=== PATIENT | female | born 1965 | race Caucasian/White ===

== ENCOUNTER 2016-04-18 03:31 | Emergency (ER) | payer MEDICARE, MEDICAID ==
[2016-04-18] MEDS ORDERED: NS 0.9% 1000 ML* 1,000 ML IV ONE (03:54)
[2016-04-18] MEDS ORDERED: methylPREDNISolone 125 MG* 2 ML VIAL IV ONE (03:57)
[2016-04-18] MEDS ORDERED: diPHENhydraMINE IV* 50 MG/ML 1 ml VIAL (BENADRYL) IV ONE (03:57)
[2016-04-18 04:50] LABS: ALT 9 U/L (7-52); AST 15 U/L (13-39); Albumin 4.2 g/dL (3.2-5.2); Alkaline Phosphatase 63 U/L (34-104); Anion Gap 10 mmol/L (2-11); BUN/Creatinine Ratio 13.6 (8-20); Blood Urea Nitrogen 9 mg/dL (6-24); CO2 Carbon Dioxide 23 mmol/L (22-32); Calcium 8.6 mg/dL (8.6-10.3); Chloride 105 mmol/L (101-111); EGFR African American 121.9 (>60); EGFR Non-African American 94.8 (>60); Globulin 2.7 g/dL (2-4); Glucose 98 mg/dL (70-100); Lipase 21 U/L (11.0-82.0); Potassium 3.3 mmol/L (3.5-5.0); Sodium 138 mmol/L (133-145); Total Protein 6.9 g/dL (6.4-8.9)
[2016-04-18 04:52] LABS: Hematocrit 29 % (35-47); Hemoglobin 8.6 g/dl (12.0-16.0); Mean Corpuscular HGB Conc 30 g/dl (31-36); Mean Corpuscular Hemoglobin 22 pg (27-31); Mean Corpuscular Volume 71 fL (80-97); Mean Platelet Volume 8 um3 (7.4-10.4); Red Blood Count 4.02 10^6/ul (4.0-5.4); Red Cell Distribution Width 19 % (10.5-15); White Blood Count 5.9 10^3/ul (3.5-10.8)
[2016-04-18 04:53] LABS: Add Diff/Slide Review? Slide Review Added; Comments Flag Yes
[2016-04-18 05:13] LABS: Hypochromasia 1+; Macrocytosis 1+; Microcytosis 1+; Target Cells 1+; Tear Drop Cells 1+
[2016-04-18] MEDS ORDERED: Potassium Chlor TAB* 20 MEQ TAB.ER PO ONE ×2 (05:17→06:28)
[2016-04-18] MEDS ORDERED: Iohexol 300* (CONTRAST) 10 ML SDV IV ONE (05:49)
--- NOTE | 2016-04-18 07:13 | ED ---
Rafa Fernandez Matthew, scribed for Donnie Varghese on 04/18/16 at 0412 . Complex/Multi-Sys Presentation - HPI Summary HPI Summary: A 50 y/o female presents to the ED with diffuse upper body itchiness since . Associated symptoms include nausea, vomiting, weakness, SOB, and diffuse abdominal pain. The patient denies rash, chest pain, and diarrhea. She has an appointment with her PCP next week, but states that she can't take the itchiness anymore and presents to the ED tonight. No Hx of liver disease. Hx of fibromyalgia and Crohns disease - History Of Current Complaint Chief Complaint: EDGeneral Time Seen by Provider: 04/18/16 03:35 Hx Obtained From: Patient Onset/Duration: Gradual Onset, Lasting Weeks, Still Present Timing: Constant Severity Currently: Moderate Severity Initially: Moderate Associated Signs And Symptoms: Positive: Weakness, SOB, Nausea, Vomiting, Other - Diffuse abdominal pain, NO rash. Negative: Chest Pain, Diarrhea - Allergies/Home Medications Allergies/Adverse Reactions: Allergies Allergy/AdvReac Type Severity Reaction Status Date / Time Nortriptyline AdvReac Dizziness Verified 04/18/16 03:51 PMH/Surg Hx/FS Hx/Imm Hx Endocrine/Hematology History: Reports: Hx Anemia Denies: Hx Diabetes Cardiovascular History: Denies: Hx Congestive Heart Failure, Hx Hypertension, Hx Pacemaker/ICD Respiratory History: Reports: Other Respiratory Problems/Disorders GI History: Reports: Hx Crohn's Disease Denies: Other GI Disorders History: Denies: Hx Renal Disease Musculoskeletal History: Reports: Hx Arthritis, Hx Back Problems, Hx Fibromyalgia Sensory History: Denies: Hx Hearing Aid Neurological History: Reports: Hx Migraine, Hx Seizures, Other Neuro Impairments /Disorders - being seen for "shakes" the pt has Psychiatric History: Denies: Hx Panic Disorder - Cancer History Hx Chemotherapy: Yes - Imuran Hx Radiation Therapy: No - Surgical History Surgery Procedure, Year, and Place: tubal ligation, inguinal hernia repair. BREAST IMPLANTS Hx Anesthesia Reactions: No Infectious Disease History: No Infectious Disease History: Denies: Traveled Outside the [place] in Last 30 Days - Family History Family History: FHx of breast CA - Social History Alcohol Use: None Substance Use Type: Reports: None Smoking Status (MU): Former Smoker Review of Systems Constitutional: Negative Eyes: Negative ENT: Negative Cardiovascular: Negative Negative: Chest Pain Positive: Shortness Of Breath Positive: Abdominal Pain - Diffuse , Vomiting, Nausea. Negative: Diarrhea Genitourinary: Negative Musculoskeletal: Negative Skin: Negative Positive: Weakness Psychological: Normal All Other Systems Reviewed And Are Negative: Yes Physical Exam Triage Information Reviewed: Yes Vital Signs On Initial Exam: Initial Vitals Temp Pulse Resp BP Pulse Ox 97.9 F 73 16 132/85 99 04/18/16 03:35 04/18/16 03:35 04/18/16 03:35 04/18/16 03:35 04/18/16 03:35 Vital Signs Reviewed: Yes Appearance: Positive: Well-Appearing, No Pain Distress Skin: Positive: Warm, Skin Color Reflects Adequate Perfusion, Dry Head/Face: Positive: Normal Head/Face Inspection Eyes: Positive: EOMI, YAMILKA Neck: Positive: Other: - Rash over the neck Respiratory/Lung Sounds: Positive: Clear to Auscultation, Breath Sounds Present Cardiovascular: Positive: RRR, Pulses are Symmetrical in both Upper and Lower Extremities Abdomen Description: Positive: Soft, Other: - Diffuse abdominal tenderness Bowel Sounds: Positive: Present Musculoskeletal: Positive: Normal, Strength/ROM Intact Neurological: Positive: Normal, Sensory/Motor Intact, Alert, Oriented to Person Place, Time Psychiatric: Positive: Affect/Mood Appropriate Diagnostics - Vital Signs Vital Signs Temp Pulse Resp BP Pulse Ox 04/18/16 03:35 97.9 F 73 16 132/85 99 - Laboratory Result Diagrams: 04/18/16 04:20 04/18/16 04:20 Lab Statement: Any lab studies that have been ordered have been reviewed, and results considered in the medical decision making process. - CT CT A/P CT Interpretation: No Acute Changes - No inflammatory process identified in the abdomen or pelvis. No abdominal mass, adenopathy, or collection seen. No explanation seen for this patients symptoms. CT Interpretation Completed By: Radiologist - EKG 03:57 Cardiac Rate: NL - 70 bpm EKG Rhythm: Sinus Rhythm Complex Multi-Symp Course/Dx Assessment/Plan: A 50 y/o female presents to the ED with diffuse upper body itchiness since 03/18/16. Labs were reviewed. CT A/P as stated above. EKG shows NSR at 70 bpm. In the ED course, the patient was given IV fluids, potassium, Benadryl, and Solu-Medrol. The patient will be discharged home and follow-up with her PCP. - Diagnoses Provider Diagnoses: Allergic reaction, Anemia Discharge - Discharge Plan Condition: Stable Disposition: HOME Prescriptions: Methylprednisolone [Medrol Dosepak 4 MG*] 0 mg PO .SEE JOHANNA INSTRUCTION #1 tab diPHENhydraMINE PO* [Benadryl PO 25 MG TAB*] 25 mg PO TID PRN #20 tab PRN Reason: Itching Patient Education Materials: Diphenhydramine (By mouth), Methylprednisolone ( By mouth), General Allergic Reaction (ED), Anemia (ED) Referrals: Renetta Madison MD [Primary Care Provider] - Additional Instructions: Please follow-up with your primary care physician in 3 days. The documentation as recorded by the Rafa washburn Matthew accurately reflects the service I personally performed and the decisions made by Abimael mane Emmanuel.
[2016-04-18 07:29] VITALS: BP 106/63
--- NOTE | 2016-04-18 09:16 | RAD ---
INDICATION: Abdominal pain. History of Crohn's disease. History of stomach abscess. Previous inguinal hernia repair. COMPARISON: April 18, 2015 MR enterogram. December 13, 2014 CT. TECHNIQUE: Multidetector CT images were obtained from the lung bases to the ischial tuberosities with 72 mL Omnipaque 300 IV and oral contrast. Multiplanar reformation. REPORT: Unremarkable visualized inferior thorax. Unremarkable liver, gallbladder, pancreas, spleen. Negative for CT abnormality of the upper GI or small bowel. Probable diminutive appendix visualized extending cephalad posterior to the cecum. While the colon is somewhat featureless particularly at the RIGHT colon which may be seen in setting of inflammatory bowel disease there is no compelling mural thickening or perienteric inflammatory change at this time. Negative for ascites, free air, or hernias. Postsurgical change of previous RIGHT inguinal hernia repair. Normal adrenal glands. Unremarkable kidneys with symmetric nephrograms and pyelograms. Unremarkable ureters and partially distended urinary bladder as well as the retroverted and rightward deviated uterus and adnexal regions. Suggestion of bilateral tubal ligation clips. Negative for lymphadenopathy. Normal diameter abdominal aorta and iliac arteries. Physiologic distention of the IVC. Unremarkable osseous structures. Mild bilateral hip joint osteoarthritis. Unremarkable sacroiliac joints. No suspicious focal osseous lesions. IMPRESSION: 1. No acute abdominal pelvis pathologic process evident. 2. While the colon is somewhat featureless particularly at the RIGHT colon which may be seen in setting of inflammatory bowel disease there is no compelling mural thickening or perienteric inflammatory change at this time.
== END 2016-04-18 07:29 | disposition home or self-care (01) ==
LOC: ED 03:31
DX: R53.1 Weakness (principal); R06.02 Shortness of breath; R11.2 Nausea with vomiting, unspecified; Z87.891 Personal history of nicotine dependence; T78.40XA Allergy, unspecified, initial encounter; X58.XXXA Exposure to other specified factors, initial encounter; D64.9 Anemia, unspecified
CPT/HCPCS: 36415; 74177; 80053; 83690; 84484; 84702; 85025; 85610; 85730; 93005; 96374; 96375; 99283; A9270-GY; J1200; J2930; Q9967

== ENCOUNTER 2018-08-19 15:28 | Emergency (ER) | payer MEDICARE, MEDICAID ==
--- OUTSIDE RECORDS SUMMARY | 2018-08-19 15:45 | XMS REPORT | Continuity of Care Document ---
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 Renetta Madison MD Primary Care Physician Unavailable Payers Date Identification Numbers Payment Provider Subscriber Policy Number: [id number] Medicare Uzma Sorensen PayID: [id number] [facility] [address] [place] [address] Policy Number: [id number] Medicaid/Medicare Uzma Sorensen Group Name: 2 1 [facility] [employer] [facility] PayID: [id number] [address] [place] [address] Expires: 2017 Policy Number: [id number] Medicaid Uzma Sorensen Group Name: 1 1 [facility] [employer] [facility] PayID: [id number] [address] [place] [address] Problems Active Problems Provider Date Crohn's disease Redd Plummer M.D. Onset: 04/15/2012 Crohn's disease of small intestine with Redd Plummer M.D. Onset: 01/07/2015 intestinal obstruction Generalized convulsive epilepsy Renetta Madison MD Onset: 03/20/2009 Primary fibromyalgia syndrome Renetta Madison MD Onset: 03/05/2009 Iron deficiency anemia Malgorzata Avlarado PA-C Onset: 10/25/2017 Crohn's disease of small AND large Malgorzata Alvarado PA-C Onset: 2017 intestines Family History Date Family Member(s) Observation Comments Father Colon Cancer Social History Type Date Description Comments Sex Unknown ETOH Use Denies alcohol use Tobacco Use Start: Unknown End: Unknown Patient is a former smoker Smoking Status Reviewed: 08/17/18 Patient is a former smoker Allergies, Adverse Reactions, Alerts Active Allergies Reaction Severity Comments Date Nortriptyline dizzy, light headed 11/18/2015 Inactive Allergies Nortriptyline 04/15/2012 NKDA 03/21/2015 Medications Active Medications SIG Qnty Indications Ordering Date Provider Ferrous Gluconate 1 tab PO qod 30tabs Malgorzata L. 12/08/2017 324(38Fe) KHOA Alvarado mg Tablets Dicyclomine HCL 1 by mouth four 100caps Suraj D. 04/03/2016 10mg times a day as MD Erwin Capsules needed Azathioprine Take One Tablet 30tabs Suraj D. 11/26/2014 50mg Tablets By Mouth Every MD rEwin Day Fentanyl apply one patch 15units Rachel Bradley N 03/24/2013 100mcg/HR Patches every 2 days P 72HR Aspirin 2 po 2 to 3 Latanya Madison 03/24/2013 325mg Tablets times prn MD everton Lamotrigine 1 Tablet 5 Times Unknown 100mg Tablets Daily Remicade infusion Q 6-8 Unknown 100mg Solution Rec weeks Diphenhydramine HCL Take One Capsule Unknown 25mg By Mouth Three Capsules Times A Day as Needed For Itching History Medications Colyte With Flavor by mouth as 4000ml Z12.11 Mercedes Nietoion, 11/18/2015 - Packs directed INSTALLATION ENGINEER-C 07/26/2017 240gm Solution Rec Colyte With Flavor by mouth as 4000ml Redd Plummer, 08/06/2015 - Packs directed M.D. 05/26/2016 240gm Solution Rec Colyte-Flavor Packs As directed 4000ml K50.90 Mercedes Nietoion, 06/12/2015 - INSTALLATION ENGINEER-C 06/15/2015 240gm Solution Rec Slow Fe 1 by mouth every 30tabs Rachel Bradley NP 01/21/2015 - 160(50Fe) mg day 11/18/2015 Tablets ER Omeprazole 1 by mouth every 30caps Redd Plummer, 01/12/2015 - 40mg day M.D. 11/18/[address] Bella Patel-Crohns 1 starter 1package Redd Plummer, 01/11/2015 - Diseasestarter package Use as M.D. 04/09/2015 directed by 40mg/0.8ML [facility] physician's office. Dexilant one po daily 30caps Rachel Bradley NP 01/11/2015 - 60mg Capsules 11/18/2015 DR Dicyclomine HCL 1 by mouth four 100caps Redd Plummer, 12/20/2014 - 10mg times a day as M.D. 11/18/2015 Capsules needed Remicade infusion every Redd Plummer, 11/13/2013 - 100mg Solution 8-10 weeks M.D. 11/26/2014 Rec Dicyclomine HCL 1 by mouth four 100caps Redd Plummer, 07/21/2013 - 10mg times a day as M.D. 11/13/2013 Capsules needed Oxymorphone tid Redd Plummer, 03/06/2013 - Hydrochloride ER M.D. 07/10/2013 10mg Tablets ER 12HR Colyte-Flavor Packs As directed 1units 555.9 Redd Plummer, 03/06/2013 - M.D. 03/09/2013 240gm Solution Rec Azathioprine 1 po qd 90tabs Redd Plummer, 04/15/2012 - 50mg M.D. 11/26/2014 Tablets Fentanyl 1 Patch Q 2 Days Unknown - 75mcg/HR 04/09/2015 Patches 72HR Venlafaxine HCL Rachel Bradley NP - 75mg 10/25/2017 Tablets Prednisone tapering regimen Unknown - on discharge 04/09/2015 Prednisone as directed. Unknown - 20mg Tablets 04/09/2015 Vital Signs Date Vital Result Comment 08/17/2018 3:22pm Height 61 inches 5'1" Weight 113.00 lb BP Systolic 142 mmHg BP Diastolic 83 mmHg Heart Rate 89 /min BMI (Body Mass Index) 21.3 kg/m2 01/12/2018 4:00pm Height 61 inches 5'1" Weight 121.00 lb BP Systolic 136 mmHg BP Diastolic 80 mmHg Heart Rate 69 /min BMI (Body Mass Index) 22.9 kg/m2 10/25/2017 9:35am Height 62 inches 5'2" Weight 120.00 lb BP Systolic 109 mmHg BP Diastolic 79 mmHg Heart Rate 89 /min BMI (Body Mass Index) 21.9 kg/m2 07/07/2016 3:32pm Height 62 inches 5'2" Weight 128.00 lb BP Systolic 124 mmHg BP Diastolic 72 mmHg Heart Rate 90 /min BMI (Body Mass Index) 23.4 kg/m2 07/07/2016 3:13pm Height 62 inches 5'2" 04/29/2016 9:55am Height 62 inches 5'2" Weight 130.00 lb BMI (Body Mass Index) 23.8 kg/m2 11/18/2015 2:31pm Height 62 inches 5'2" BP Systolic 120 mmHg BP Diastolic 68 mmHg Heart Rate 74 /min 06/12/2015 3:07pm Height 62 inches 5'2" Weight 124.00 lb BMI (Body Mass Index) 22.7 kg/m2 05/14/2015 1:00pm Height 62 inches 5'2" Weight 117.00 lb BMI (Body Mass Index) 21.4 kg/m2 04/09/2015 3:22pm Height 62 inches 5'2" Weight 114.00 lb BP Systolic 122 mmHg BP Diastolic 78 mmHg Heart Rate 60 /min BMI (Body Mass Index) 20.8 kg/m2 02/25/2015 2:08pm Height 62 inches 5'2" Weight 112.00 lb BP Systolic 110 mmHg BP Diastolic 64 mmHg BMI (Body Mass Index) 20.5 kg/m2 01/07/2015 9:19am Height 62 inches 5'2" Weight 107.00 lb BP Systolic 122 mmHg BP Diastolic 70 mmHg Heart Rate 84 /min BMI (Body Mass Index) 19.6 kg/m2 11/26/2014 9:39am Height 62 inches 5'2" Weight 110.00 lb BP Systolic 110 mmHg BP Diastolic 80 mmHg Heart Rate 78 /min BMI (Body Mass Index) 20.1 kg/m2 11/13/2013 3:03pm Height 62 inches 5'2" Weight 118.00 lb BP Systolic 118 mmHg BP Diastolic 70 mmHg Heart Rate 72 /min BMI (Body Mass Index) 21.6 kg/m2 07/10/2013 11:21am Height 62 inches 5'2" Weight 117.00 lb BMI (Body Mass Index) 21.4 kg/m2 03/06/2013 3:23pm Height 62 inches 5'2" Weight 122.00 lb BP Systolic 122 mmHg BP Diastolic 78 mmHg Heart Rate 72 /min BMI (Body Mass Index) 22.3 kg/m2 11/14/2012 4:03pm Height 62 inches 5'2" Weight 125.00 lb BP Systolic 104 mmHg BP Diastolic 76 mmHg Heart Rate 76 /min BMI (Body Mass Index) 22.9 kg/m2 09/14/2012 3:41pm Height 62 inches 5'2" Weight 126.00 lb BP Systolic 116 mmHg BP Diastolic 72 mmHg Heart Rate 68 /min BMI (Body Mass Index) 23.0 kg/m2 06/28/2012 3:45pm Height 62 inches 5'2" Weight 124.00 lb BP Systolic 118 mmHg BP Diastolic 74 mmHg Heart Rate 88 /min BMI (Body Mass Index) 22.7 kg/m2 04/15/2012 2:35pm Height 62 inches 5'2" Weight 109.00 lb BP Systolic 120 mmHg BP Diastolic 70 mmHg Heart Rate 72 /min BMI (Body Mass Index) 19.9 kg/m2 Results Test Date Facility Test Result H/L Range Note CBC Auto Diff 08/10/2018 [facility] [place] Count 4.7 10^3/uL N 3.5-10.8 Red Blood Count 3.97 10^6/uL N 3.70-4.87 Hemoglobin 11.7 g/dL Low 12.0-16.0 Hematocrit 34 % Low 35-47 Mean Corpuscular Volume 87 fL N 80-97 Mean Corpuscular Hemoglobin 30 pg N 27-31 Mean Corpuscular HGB Conc 34 g/dL N 31-36 Red Cell Distribution Width 17 % High 10-15 Platelet Count 293 10^3/uL N 150-450 Mean Platelet Volume 8.2 fL N 7.4-10.4 Abs Neutrophils 3.3 10^3/uL N 1.5-7.7 Abs Lymphocytes 0.9 10^3/uL Low 1.0-4.8 Abs Monocytes 0.5 10^3/uL N 0-0.8 Abs Eosinophils 0.0 10^3/uL N 0-0.6 Abs Basophils 0.0 10^3/uL N 0-0.2 Abs Nucleated RBC 0.0 10^3/uL Granulocyte % 69.7 % Lymphocyte % 19.2 % Monocyte % 9.6 % Eosinophil % 0.9 % Basophil % 0.6 % Nucleated Red Blood Cells % 0.1 Laboratory test 08/10/2018 [facility] [place]otrigine 14.9 2.5 - 1 finding (Lamictal) g/mL 15.0 CBC W/Auto 12/06/2017 [facility] White Blood 7.2 3/UL 4.8-10.8 Differential(!) [address] [place] [address] CNT [phone] RBC Red Blood Count 4.32 X106/UL 4.20-6.20 Hemoglobin Blood 9.2 g/dL Low 12.0-18.0 Hematocrit 32.3 % Low 35-52 MCV (Corpuscular Volume) 74.9 FL Low 79-97 MCH (Corpuscular Hemoglobin) 21.3 pg Low 27-31 MCHC (Corpuscular Hemog Conc) 28.4 g/dL Low 32.0-36.0 RDW 19.9 % High 10.5-15.0 Platelet Count Blood Auto CNT 461 X103/UL High 150-450 MPV 7.3 FL Low 7.4-10.4 Lymph% 24.9 % 20.0-45.0 Mcpherson% 11.4 % High 1.0-9.0 Neutrophil % 63.7 % 38.0-83.0 Absolute Lymphocytes 2.0 X103/UL 1.0-4.8 Absolute Monocytes 0.9 X103/UL High 0.0-0.8 Absolute Neutrophils 5.0 X103/UL 1.5-7.7 Laboratory test 12/06/2017 [facility] Ferritin 3.7 ng/dL Low 24-250 finding [address] Ser/[place] [address] Mass/Vol(!) [phone] Iron & Iron 12/06/2017 [facility] Iron 24 g/dL Low 50-212 Binding Capacity Unsaturated Iron Binding < 577 g/dL Total Iron Binding Capacity 592 g/dL High 250-450 Transferrin 423 mg/dL High 203-362 % Iron Saturation 4 % Low 15-55 CBC Auto Diff 10/25/2017 [facility] White Blood Count 4.1 10^3/uL N 3.5-10.8 Red Blood Count 3.85 10^6/uL Low 4.00-5.40 Hemoglobin 8.6 g/dL Low 12.0-16.0 Hematocrit 28 % Low 35-47 Mean Corpuscular Volume 73 fL Low 80-97 Mean Corpuscular Hemoglobin 22 pg Low 27-31 Mean Corpuscular HGB Conc 30 g/dL Low 31-36 Red Cell Distribution Width 21 % High 10.5-15 Platelet Count 327 10^3/uL N 150-450 Mean Platelet Volume 7.8 um3 N 7.4-10.4 Abs Neutrophils 3.3 10^3/uL N 1.5-7.7 Abs Lymphocytes 0.6 10^3/uL Low 1.0-4.8 Abs Monocytes 0 10^3/uL N 0-0.8 Abs Eosinophils 0.1 10^3/uL N 0-0.6 Abs Basophils 0 10^3/uL N 0-0.2 Abs Nucleated RBC 0 10^3/uL Granulocyte % 81.0 % N 38-83 Lymphocyte % 15.5 % Low 25-47 Monocyte % 1.1 % N 0-7 Eosinophil % 1.3 % N 0-6 Basophil % 1.1 % N 0-2 Nucleated Red Blood Cells % 0.2 Comp Metabolic Panel 10/25/2017 [facility] Sodium 140 mmol/L N 135-145 Potassium 3.7 mmol/L N 3.5-5.0 Chloride 108 mmol/L N 101-111 Co2 Carbon Dioxide 26 mmol/L N 22-32 Anion Gap 6 mmol/L N 2-11 Glucose 85 mg/dL N 70-100 Blood Urea Nitrogen 6 mg/dL N 6-24 Creatinine 0.77 mg/dL N 0.51-0.95 BUN/Creatinine Ratio 7.8 Low 8-20 Calcium 8.7 mg/dL N 8.6-10.3 Total Protein 7.2 g/dL N 6.4-8.9 Albumin 4.4 g/dL N 3.2-5.2 Globulin 2.8 g/dL N 2-4 Albumin/Globulin Ratio 1.6 N 1-3 Total Bilirubin 0.10 mg/dL Low 0.2-1.0 Alkaline Phosphatase 54 U/L N 34-104 Alt 10 U/L N 7-52 Ast 18 U/L N 13-39 Egfr Non- 78.7 >60 Egfr 95.3 >60 2 Laboratory test finding 10/25/2017 [facility] Ferritin 3.3 ng/mL Low 11-307 Vitamin B12 420 pg/mL N 180-914 3 Cell Morphology 10/25/2017 [facility] [place]cytosis 1+ Elliptocyte 1+ Laboratory test finding 10/25/2017 [facility] Iron (Fe) TNP g/dL 50-212 4 Folic Acid (Folate) 16.53 ng/mL >3.99 Laboratory test 08/06/2016 [facility] [place] SEE RESULT 5, 6 finding Interface Order BELOW Laboratory test 09/03/2015 N2N/CCD Import Ferritin 55.7 ng/mL 11-307 finding TSH (Thyroid Stim Horm) 1.87 mcIU/mL 0.34-5.60 CBC Auto Diff 09/03/2015 N2N/CCD Import Abs Basophils 0 10^3/uL 0-0.2 Abs Eosinophils 0.1 10^3/uL 0-0.6 Abs Lymphocytes 1.4 10^3/uL 1.0-4.8 Abs Monocytes 0.4 10^3/uL 0-0.8 Abs Neutrophils 3.1 10^3/uL 1.5-7.7 Abs Nucleated RBC 0.01 10^3/uL Basophil % 0.7 % 0-2 Eosinophil % 1.1 % 0-6 Granulocyte % 62.2 % 38-83 Hematocrit 39 % 35-47 Hemoglobin 13.0 g/dL 12.0-16.0 Lymphocyte % 28.5 % 25-47 Mean Corpuscular HGB Conc 33 g/dL 31-36 Mean Corpuscular Hemoglobin 29 pg 27-31 Mean Corpuscular Volume 86 fL 80-97 Mean Platelet Volume 8 um3 7.4-10.4 Monocyte % 7.5 % 1-9 Nucleated Red Blood Cells % 0.2 Platelet Count 245 10^3/uL 150-450 Red Blood Count 4.57 10^6/uL 4.0-5.4 Red Cell Distribution Width 25 % High 10.5-15 White Blood Count 5.0 10^3/uL 3.5-10.8 7 Iron & Iron Binding 09/03/2015 N2N/CCD Import % Iron Saturation 21 % 15- 55 Capacity Iron 63 g/dL 50-212 Total Iron Binding Capacity 305 g/dL 250-450 Unsaturated Iron Binding 242 g/dL Laboratory test 06/26/2015 [facility] [place] Lab See Comment N 8 finding Test Inr/Protime 06/04/2015 N2N/CCD Import Inr 0.98 0.89-1. 11 Laboratory test 06/04/2015 [email or web address] Import MRSA/S. aureus See Result 9 finding Ssti PCR Below Wound/Misc Culture-Gram Stain See Result Below 10 Laboratory test finding 06/04/2015 N2N/CCD Import Albumin 4.3 g/dL 3.2- 5.2 Albumin/Globulin Ratio 1.4 1-3 Alkaline Phosphatase 71 U/L 34-104 Alt 10 U/L 7-52 Anion Gap 7 mmol/L 2-11 Ast 14 U/L 13-39 BUN/Creatinine Ratio 17.1 8-20 Blood Urea Nitrogen 13 mg/dL 6-24 C Reactive Protein 88.02 mg/L High < 5.00 11 Calcium 8.8 mg/dL 8.6-10.3 Chloride 104 mmol/L 101-111 Co2 Carbon Dioxide 25 mmol/L 22-32 Creatinine 0.76 mg/dL 0.51-0.95 Egfr 104.0 >60 Egfr Non- 80.9 >60 Globulin 3.0 g/dL 2-4 Glucose 97 mg/dL 70-100 Lactic Acid 1.4 mmol/L 0.5-2.0 12 Partial Thrombo Time PTT 34.0 s 26.0-36.3 Potassium 3.6 mmol/L 3.5-5.0 Sodium 136 mmol/L 133-145 13 Total Bilirubin 0.10 mg/dL Low 0.2-1.0 Total Protein 7.3 g/dL 6.4-8.9 Troponin-I (TnI) 0.01 ng/mL <0.03 14 CBC Auto Diff 06/04/2015 [email or web address] Import Abs Basophils 0 10^3/uL 0-0.2 Abs Eosinophils 0 10^3/uL 0-0.6 Abs Lymphocytes 0.6 10^3/uL Low 1.0-4.8 Abs Monocytes 0.4 10^3/uL 0-0.8 Abs Neutrophils 7.5 10^3/uL 1.5-7.7 Abs Nucleated RBC 0 10^3/uL Basophil % 0.3 % 0-2 Eosinophil % 0.1 % 0-6 Granulocyte % 88.3 % High 38-83 Hematocrit 31 % Low 35-47 Hemoglobin 9.5 g/dL Low 12.0-16.0 Lymphocyte % 6.8 % Low 25-47 Mean Corpuscular HGB Conc 31 g/dL 31-36 Mean Corpuscular Hemoglobin 27 pg 27-31 Mean Corpuscular Volume 86 fL 80-97 Mean Platelet Volume 8 um3 7.4-10.4 Monocyte % 4.5 % 1-9 Nucleated Red Blood Cells % 0 Platelet Count 365 10^3/uL 150-450 Red Blood Count 3.55 10^6/uL Low 4.0-5.4 Red Cell Distribution Width 17 % High 10.5-15 White Blood Count 8.5 10^3/uL 3.5-10.8 CMP(!) 03/20/2015 [facility] Sodium(!) <pending> Potassium(!) <pending> Chloride Serum/Plasma(!) <pending> Carbon Dioxide Ser/Plasm(!) <pending> BUN - Urea Nitrogen(!) <pending> Calcium Ser/Plasma Mass/Vol(!) <pending> Creatinine Serum Mass/Vol(!) <pending> Glucose Serum(!) <pending> Uric Acid Ser/Plas Mass/Vol(!) <pending> BUN/Creatinine Ratio(!) <pending> Albumin Serum/Plasma(!) <pending> Alkaline Phosphatase(!) <pending> Bilirubin Total Mass/Vol(!) <pending> Ast - Sgot <pending> Alt - SGPT <pending> Protein Total <pending> CBC W/Auto 03/20/2015 [facility] White Blood <pending> Differential(!) Count Ser Auto CNT RBC Red Blood Count <pending> Hemoglobin Blood <pending> Hematocrit <pending> MCV (Corpuscular Volume) <pending> MCH (Corpuscular Hemoglobin) <pending> MCHC (Corpuscular Hemog Conc) <pending> RDW <pending> Platelet Count Blood Auto CNT <pending> MPV <pending> Lymph% <pending> Mcpherson% <pending> Neutrophil % <pending> Absolute Lymphocytes <pending> Absolute Monocytes <pending> Absolute Neutrophils <pending> CBC Auto Diff 01/07/2015 [facility] White Blood Count 6.4 10^3/uL N 4.8-10.8 Red Blood Count 3.80 10^6/uL Low 4.0-5.4 Hemoglobin 9.9 g/dL Low 12.0-16.0 Hematocrit 32 % Low 35-47 Mean Corpuscular Volume 85 fL N 80-97 Mean Corpuscular Hemoglobin 26 pg Low 27-31 Mean Corpuscular HGB Conc 31 g/dL N 31-36 Red Cell Distribution Width 16 % High 10.5-15 Platelet Count 563 10^3/uL High 150-450 Mean Platelet Volume 7 um3 Low 7.4-10.4 Abs Neutrophils 4.6 10^3/uL N 1.5-7.7 Abs Lymphocytes 1.4 10^3/uL N 1.0-4.8 Abs Monocytes 0.4 10^3/uL N 0-0.8 Abs Eosinophils 0 10^3/uL N 0-0.6 Abs Basophils 0 10^3/uL N 0-0.2 Abs Nucleated RBC 0 10^3/uL N Granulocyte % 71.7 % N 38-83 Lymphocyte % 21.3 % Low 25-47 Monocyte % 6.5 % N 1-9 Eosinophil % 0.2 % N 0-6 Basophil % 0.3 % N 0-2 Nucleated Red Blood Cells % 0 N Comp Metabolic Panel 01/07/2015 [facility] [place]odium 136 mmol/L N 133-145 Potassium 3.7 mmol/L N 3.5-5.0 Chloride 99 mmol/L Low 101-111 Co2 Carbon Dioxide 32 mmol/L N 22-32 Anion Gap 5 mmol/L N 2-11 Glucose 85 mg/dL N 70-100 Blood Urea Nitrogen 17 mg/dL N 6-24 Creatinine 0.63 mg/dL N 0.51-0.95 BUN/Creatinine Ratio 27.0 High 8-20 Calcium 9.4 mg/dL N 8.6-10.3 Total Protein 6.9 g/dL N 6.4-8.9 Albumin 3.8 g/dL N 3.2-5.2 Globulin 3.1 g/dL N 2-4 Albumin/Globulin Ratio 1.2 N 1-3 Total Bilirubin 0.10 mg/dL Low 0.2-1.0 Alkaline Phosphatase 76 U/L N 34-104 Alt 22 U/L N 7-52 Ast 16 U/L N 13-39 Egfr Non- 100.4 N >60 Egfr 129.2 N >60 15 Laboratory test 01/07/2015 [facility] Vitamin B12 520 pg/mL N 180-914 16 finding Xray 12/13/2014 [facility] [place] Abd/Pel W <pending> CBC Auto Diff 11/29/2014 [facility] White Blood 8.8 10^3/uL N 4.8-10.8 Count Red Blood Count 4.19 10^6/uL N 4.0-5.4 Hemoglobin 11.5 g/dL Low 12.0-16.0 Hematocrit 36 % N 35-47 Mean Corpuscular Volume 86 fL N 80-97 Mean Corpuscular Hemoglobin 27 pg N 27-31 Mean Corpuscular HGB Conc 32 g/dL N 31-36 Red Cell Distribution Width 15 % N 10.5-15 Platelet Count 376 10^3/uL N 150-450 Mean Platelet Volume 8 um3 N 7.4-10.4 Abs Neutrophils 7.5 10^3/uL N 1.5-7.7 Abs Lymphocytes 0.5 10^3/uL Low 1.0-4.8 Abs Monocytes 0.8 10^3/uL N 0-0.8 Abs Eosinophils 0 10^3/uL N 0-0.6 Abs Basophils 0 10^3/uL N 0-0.2 Abs Nucleated RBC 0 10^3/uL N Granulocyte % 85.1 % High 38-83 Lymphocyte % 5.1 % Low 25-47 Monocyte % 8.9 % N 1-9 Eosinophil % 0.4 % N 0-6 Basophil % 0.5 % N 0-2 Nucleated Red Blood Cells % 0 N CBC W/Auto 11/26/2014 [facility] White 9.2 3/UL 4.8- 10.8 Differential(!) [address] [facility] [place] [address] Count Ser [phone] Auto CNT RBC Red Blood Count 4.24 X106/UL 4.20-6.20 Hemoglobin Blood 12.4 g/dL 12.0-18.0 Hematocrit 37.3 % 35-52 MCV (Corpuscular Volume) 88.0 FL 79-97 MCH (Corpuscular Hemoglobin) 29.3 pg 27-31 MCHC (Corpuscular Hemog Conc) 33.3 g/dL 32.0-36.0 RDW 15.4 % High 10.5-15.0 Platelet Count Blood Auto CNT 361 X103/UL 150-450 MPV 7.0 FL Low 7.4-10.4 Lymph% 13.2 % Low 20.0-45.0 Mcpherson% 4.8 % 1.0-9.0 Neutrophil % 82.0 % 38.0-83.0 Absolute Lymphocytes 1.2 X103/UL 1.0-4.8 Absolute Monocytes 0.4 X103/UL 0.0-0.8 Absolute Neutrophils 7.5 X103/UL 1.5-7.7 CBC W/Auto 11/06/2013 [facility] White 4.3 3/UL Low 4.8- 10.8 Differential(!) [address] [place] [address] Count Ser [phone] Auto CNT RBC Red Blood Count 4.22 X106/UL 4.20-6.20 Hemoglobin Blood 13.2 g/dL 12.0-18.0 Hematocrit 40.6 % 35-52 MCV (Corpuscular Volume) 96.3 FL 79-97 MCH (Corpuscular Hemoglobin) 31.2 pg High 27-31 MCHC (Corpuscular Hemog Conc) 32.4 g/dL 32.0-36.0 RDW 15.2 % High 10.5-15.0 Platelet Count Blood Auto CNT 221 X103/UL 150-450 MPV 8.1 FL 7.4-10.4 Lymph% 25.8 % 20.0-45.0 Mcpherson% 5.5 % 1.0-9.0 Neutrophil % 68.7 % 38.0-83.0 Absolute Lymphocytes 1.1 X103/UL 1.0-4.8 Absolute Monocytes 0.2 X103/UL 0.0-0.8 Absolute Neutrophils 3.0 X103/UL 1.5-7.7 Liver 11/06/2013 [facility] Albumin 4.5 g/dL 3.5-5.2 Function [address] [facility] Serum/Plasma(!) Panel(!) [place], [place] [id number] [phone] Alkaline Phosphatase(!) 52 U/L 39-117 Bilirubin Direct Mass/Vol(!) 0.0 mg/dL 0.0-0.6 Bilirubin Total Mass/Vol 0.2 mg/dL 0.2-1.3 Ast - Sgot 16 U/L 5-34 Alt - SGPT 13 U/L 10-40 Total Protein 7.0 g/dL 6.2-8.1 Xray 10/28/2013 [facility] [place] Abd/Pel W <pending> Surgical 06/09/2013 [facility] [place] DATE: Pathology 06/13/ <SEE NOTE> CBC W/Auto 03/06/2013 [facility] White Blood 5.5 3/UL 4.8-1 Differential(!) [address] [facility] Count Ser 0.8 [place] [address] Auto CNT [phone] RBC Red Blood Count 3.99 X106/UL Low 4.20-6.20 Hemoglobin Blood 11.4 g/dL Low 12.0-18.0 Hematocrit 36.3 % 35-52 MCV (Corpuscular Volume) 91.1 FL 79-97 MCH (Corpuscular Hemoglobin) 28.6 pg 27-31 MCHC (Corpuscular Hemog Conc) 31.4 g/dL Low 32.0-36.0 RDW 14.3 % 10.5-15.0 Platelet Count Blood Auto CNT 244 X103/UL 150-450 MPV 6.6 FL Low 7.4-10.4 Lymph% 27.3 % 20.0-45.0 Mcpherson% 3.6 % 1.0-9.0 Neutrophil % 69.1 % 38.0-83.0 Absolute Lymphocytes 1.5 X103/UL 1.0-4.8 Absolute Monocytes 0.2 X103/UL 0.0-0.8 Absolute Neutrophils 3.8 X103/UL 1.5-7.7 CMP(!) 03/06/2013 [facility] Sodium(!) 140 mEq/L 134- 149 [address] [place] [address] [phone] Potassium(!) 3.7 mEq/L 3.6-5.5 Chloride Serum/Plasma(!) 102 mEq/L 94-112 Carbon Dioxide Ser/Plasm(!) 26 mEq/L 21-33 BUN - Urea Nitrogen(!) 11 mg/dL 6-24 Calcium Ser/Plasma Mass/Vol(!) 9.3 mg/dL 8.6-10.2 Creatinine Serum Mass/Vol(!) 0.8 mg/dL 0.5-1.4 Glucose Serum(!) 78 mg/dL 70-105 Uric Acid Ser/Plas Mass/Vol(!) 1.4 mg/dL Low 2.6-7.2 BUN/Creatinine Ratio(!) 13.8 RATIO 8.0-36 Albumin Serum/Plasma(!) 4.1 g/dL 3.5-5.2 Alkaline Phosphatase(!) 80 U/L 39-117 Bilirubin Total Mass/Vol 0.2 mg/dL 0.2-1.3 Ast - Sgot 15 U/L 5-34 Alt - SGPT 13 U/L 10-40 Protein Total 7.1 g/dL 6.2-8.1 Lipid Panel(!) 03/06/2013 [facility] Cholesterol 196 mg/ dL [phone] [facility] Total Mass/Vol [place], [place] [address] [phone] High Density Lipoprotein 52 Triglycerides Ser/Plas Mass/VL 96 mg/dL 30-150 LDL Cholesterol Mass/Vol(!) 125 mg/dL 0-130 Comp Metabolic Panel 11/07/2012 [facility] Sodium 140 mmol/L 133-145 Potassium 3.9 mmol/L 3.5-5.0 Chloride 99 mmol/L Low 101-111 Co2 Carbon Dioxide 34.0 mmol/L High 22-32 Anion Gap 7.0 mmol/L 2-11 Glucose 84 mg/dL 70-100 Blood Urea Nitrogen 11 mg/dL 6-24 Creatinine 0.90 mg/dL 0.50-1.40 BUN/Creatinine Ratio 12.2 8-20 Calcium 9.9 mg/dL 8.1-9.9 Total Protein 6.6 g/dL 6.2-8.1 Albumin 4.3 g/dL 3.6-5.4 Globulin 2.3 g/dL 2-4 Albumin/Globulin Ratio 1.9 1-3 Total Bilirubin 0.4 mg/dL 0.4-1.5 Alkaline Phosphatase 69 U/L 30-110 Alt 18 U/L 14-54 Ast 22 U/L 12-42 Egfr Non- 67.1 >60 Egfr 86.3 >60 17 Laboratory test 11/07/2012 [facility] C Reactive 1.1 mg/dL High Less finding Protein than 0.5 CBC W/Auto 11/07/2012 [facility] White Blood 6.0 3/UL 4.8-10.8 Differential(!) [address] [place] [address] Auto CNT [phone] RBC Red Blood Count 4.63 X106/UL 4.20-6.20 Hemoglobin Blood 13.7 g/dL 12.0-18.0 Hematocrit 41.5 % 35-52 MCV (Corpuscular Volume) 89.6 FL 79-97 MCH (Corpuscular Hemoglobin) 29.6 pg 27-31 MCHC (Corpuscular Hemog Conc) 33.0 g/dL 32.0-36.0 RDW 15.6 % High 10.5-15.0 Platelet Count Blood Auto CNT 274 X103/UL 150-450 MPV 7.2 FL Low 7.4-10.4 Lymph% 23.4 % 20.0-45.0 Mcpherson% 2.6 % 1.0-9.0 Neutrophil % 74.0 % 38.0-83.0 Absolute Lymphocytes 1.4 X103/UL 1.0-4.8 Absolute Monocytes 0.2 X103/UL 0.0-0.8 Absolute Neutrophils 4.4 X103/UL 1.5-7.7 CBC W/Auto 08/08/2012 [facility] White 4.9 3/UL 4.8- 10.8 Differential(!) [address] [facility] [place] [address] Count Ser [phone] Auto CNT RBC Red Blood Count 4.41 X106/UL 4.20-6.20 Hemoglobin Blood 12.0 g/dL 12.0-18.0 Hematocrit 37.7 % 35-52 MCV (Corpuscular Volume) 85.5 FL 79-97 MCH (Corpuscular Hemoglobin) 27.3 pg 27-31 MCHC (Corpuscular Hemog Conc) 31.9 g/dL Low 32.0-36.0 RDW 15.5 % High 10.5-15.0 Platelet Count Blood Auto CNT 236 X103/UL 150-450 MPV 7.8 FL 7.4-10.4 Lymph% 29.1 % 20.0-45.0 Mcpherson% 3.7 % 1.0-9.0 Neutrophil % 67.2 % 38.0-83.0 Absolute Lymphocytes 1.4 X103/UL 1.0-4.8 Absolute Monocytes 0.2 X103/UL 0.0-0.8 Absolute Neutrophils 3.3 X103/UL 1.5-7.7 CMP(!) 08/08/2012 [facility] Sodium(!) 140 mEq/L 134- 149 [address] [place] [address] [phone] Potassium(!) 4.4 mEq/L 3.6-5.5 Chloride Serum/Plasma(!) 103 mEq/L 94-112 Carbon Dioxide Ser/Plasm(!) 28 mEq/L 21-33 BUN - Urea Nitrogen(!) 20 mg/dL 6-24 Calcium Ser/Plasma Mass/Vol(!) 8.7 mg/dL 8.6-10.2 Creatinine Serum Mass/Vol(!) 1.1 mg/dL 0.5-1.4 Glucose Blood(!) 89 mg/dL 70-105 Uric Acid Ser/Plas Mass/Vol(!) 2.7 mg/dL 2.6-7.2 BUN/Creatinine Ratio(!) 18.2 RATIO 8.0-36 Albumin Serum/Plasma(!) 4.6 g/dL 3.5-5.2 Alkaline Phosphatase(!) 72 U/L 39-117 Bilirubin Total Mass/Vol 0.3 mg/dL 0.2-1.3 Ast - Sgot 24 U/L 5-34 Alt - SGPT 17 U/L 10-40 Total Protein 6.7 g/dL 6.2-8.1 Laboratory test 08/08/2012 [facility] C Reactive < 0.5 mg/dL Less than finding Protein 0.5 CBC W/Auto 04/06/2012 [facility] White Blood <pending> Differential(!) Count Ser Auto CNT Lymph% <pending> Mcpherson% <pending> Granulocyte Percentage <pending> Lymph# <pending> Mcpherson# <pending> Absolute Granulocyte <pending> RBC Red Blood Count <pending> Hemoglobin Blood <pending> Hematocrit <pending> MCV (Corpuscular Volume) <pending> MCH (Corpuscular Hemoglobin) <pending> MCHC (Corpuscular Hemog Conc) <pending> RDW <pending> Platelet Count Blood Auto CNT <pending> MPV <pending> BMP W/O Egfr(!) 04/06/2012 [facility] Sodium(!) <pending> Potassium(!) <pending> Chloride Serum/Plasma(!) <pending> Carbon Dioxide Ser/Plasm(!) <pending> BUN - Urea Nitrogen(!) <pending> Calcium Ser/Plasma Mass/Vol(!) <pending> Creatinine Serum Mass/Vol(!) <pending> Glucose Blood(!) <pending> CBC W/Manual Diff(!) 04/04/2012 [facility] White Blood Count <pending > Ser Auto CNT RBC Red Blood Count <pending> Hemoglobin Blood <pending> Hematocrit <pending> MCV (Corpuscular Volume) <pending> MCH (Corpuscular Hemoglobin) <pending> MCHC (Corpuscular Hemog Conc) <pending> RDW <pending> Platelet Count Blood Auto CNT <pending> MPV <pending> Neutrophils <pending> Band Cells <pending> Lymphocytes <pending> Monocytes <pending> Eosinophils <pending> Basophils <pending> Other Cells <pending> RBC Morphology Blood <pending> BMP W/O Egfr(!) 04/04/2012 [facility] Sodium(!) <pending> Potassium(!) <pending> Chloride Serum/Plasma(!) <pending> Carbon Dioxide Ser/Plasm(!) <pending> BUN - Urea Nitrogen(!) <pending> Calcium Ser/Plasma Mass/Vol(!) <pending> Creatinine Serum Mass/Vol(!) <pending> Glucose Blood(!) <pending> CBC W/Auto 04/03/2012 [facility] White Blood <pending> Differential(!) Count Ser Auto CNT Lymph% <pending> Mcpherson% <pending> Granulocyte Percentage <pending> Lymph# <pending> Mcpherson# <pending> Absolute Granulocyte <pending> RBC Red Blood Count <pending> Hemoglobin Blood <pending> Hematocrit <pending> MCV (Corpuscular Volume) <pending> MCH (Corpuscular Hemoglobin) <pending> MCHC (Corpuscular Hemog Conc) <pending> RDW <pending> Platelet Count Blood Auto CNT <pending> MPV <pending> BMP W/O Egfr(!) 04/03/2012 [facility] Sodium(!) <pending> Potassium(!) <pending> Chloride Serum/Plasma(!) <pending> Carbon Dioxide Ser/Plasm(!) <pending> BUN - Urea Nitrogen(!) <pending> Calcium Ser/Plasma Mass/Vol(!) <pending> Creatinine Serum Mass/Vol(!) <pending> Glucose Blood(!) <pending> CBC W/Auto 04/02/2012 [facility] White Blood <pending> Differential(!) Count Ser Auto CNT Lymph% <pending> Mcpherson% <pending> Granulocyte Percentage <pending> Lymph# <pending> Mcpherson# <pending> Absolute Granulocyte <pending> RBC Red Blood Count <pending> Hemoglobin Blood <pending> Hematocrit <pending> MCV (Corpuscular Volume) <pending> MCH (Corpuscular Hemoglobin) <pending> MCHC (Corpuscular Hemog Conc) <pending> RDW <pending> Platelet Count Blood Auto CNT <pending> MPV <pending> SOB X 3 (Gai) 04/02/2012 [facility] SOB 1St Sample (Gai) <pending> SOB 2ND Sample (Gai) <pending> SOB 3RD Sample (Gai) <pending> BMP W/O Egfr(!) 04/02/2012 [facility] Sodium(!) <pending> Potassium(!) <pending> Chloride Serum/Plasma(!) <pending> Carbon Dioxide Ser/Plasm(!) <pending> BUN - Urea Nitrogen(!) <pending> Calcium Ser/Plasma Mass/Vol(!) <pending> Creatinine Serum Mass/Vol(!) <pending> Glucose Blood(!) <pending> SOB X 3 (Gai) 04/01/2012 [facility] SOB 1St Sample (Gai) <pending> SOB 2ND Sample (Gai) <pending> SOB 3RD Sample (Gai) <pending> BMP W/O Egfr(!) 04/01/2012 [facility] Sodium(!) <pending> Potassium(!) <pending> Chloride Serum/Plasma(!) <pending> Carbon Dioxide Ser/Plasm(!) <pending> BUN - Urea Nitrogen(!) <pending> Calcium Ser/Plasma Mass/Vol(!) <pending> Creatinine Serum Mass/Vol(!) <pending> Glucose Blood(!) <pending> CBC W/Auto 04/01/2012 [facility] White Blood <pending> Differential(!) Count Ser Auto CNT Lymph% <pending> Mcpherson% <pending> Granulocyte Percentage <pending> Lymph# <pending> Mcpherson# <pending> Absolute Granulocyte <pending> RBC Red Blood Count <pending> Hemoglobin Blood <pending> Hematocrit <pending> MCV (Corpuscular Volume) <pending> MCH (Corpuscular Hemoglobin) <pending> MCHC (Corpuscular Hemog Conc) <pending> RDW <pending> Platelet Count Blood Auto CNT <pending> MPV <pending> Laboratory test 04/01/2012 [facility] Clotest <pending> finding [address] [place] [address] [phone] SOB X 3 (Gai) 03/31/2012 [facility] SOB 1St Sample <pending> (Gai) SOB 2ND Sample (Gai) <pending> SOB 3RD Sample (Gai) <pending> Laboratory test 03/31/2012 [facility] Pathology <pending> finding Gastrointestinal Tra Urinalysis 03/30/2012 [facility] Ua Appearance <pending> Complete W/ [address] [facility] [place] [address] [phone] Ua Bacteria <pending> Ua Bilirubin <pending> Ua Blood Qual <pending> Ua Casts <pending> Ua Casts Other <pending> Ua Color <pending> Ua Crystals Unidentified <pending> Ua Epithelial Cells QL <pending> Ua Glucose QL <pending> Ua Ketones <pending> Ua Leuko <pending> Ua Nitrite <pending> Ua PH Test <pending> units 5.0-7.5 Ua Protein <pending> Ua RBC <pending> Ua Source <pending> Ua Specific [place] <pending> GM/ML 1.00-1.035 Ua Urobilinogen <pending> Ua WBC <pending> Ua Yeast <pending> Stool Occult Blood 03/30/2012 [facility] Occult Blood < pending> 3 Specimens [address] [place] [address] [phone] ADDITIONAL INFORMATION This test was developed and its performance characteristics determined by [facility] in a manner consistent with CLIA requirements. This test has not been cleared or approved by the U.S. Food and Drug Administration. Test Performed by: [facility] [address] [place] [address] 2 Because ethnic data is not always readily available, this report includes an eGFR for both -Americans and non- Americans. The National Kidney Disease Education Program (NKDEP) does not endorse the use of the MDRD equation for patients that are not between the ages of 18 and 70, are , have extremes of body size, muscle mass, or nutritional status, or are non- or non-. According to the National Kidney Foundation, irrespective of diagnosis, the stage of the disease is based on the level of kidney function: Stage Description GFR(mL/min/1.73 m(2)) 1 Kidney damage with normal or decreased GFR 90 2 Kidney damage with mild decrease in GFR 60-89 3 Moderate decrease in GFR 30-59 4 Severe decrease in GFR 15-29 5 Kidney failure <15 (or dialysis) 3 Normal Range 180 to 914 Indeterminate Range 145 to 180 Deficient Range <145 4 Unable to report test result due to hemolysis. 5 [id number] SEE RESULT BELOW Name: UZMA SORENSEN : [address]: Tyree Pascual MD Acct: [id number] Unit: [id number] AGE: 50 Location: [facility] Re08/06/16 SEX: F Status: DEP REF SPEC: [id number] MAE: 08/06/16-[address] [facility] [address]: Tyree Pascual MD REQ: [id number] RECD: 08/06/161556 STATUS: ZITA SIMON DR: Rachel Bradley SIGNAL INSPECTOR _ ORDERED: LEVEL 4/6 COMMENTS: [id number] FINAL DIAGNOSIS 1. Colon, cecum, biopsy: -- Large intestinal mucosa with mild architectural disorder. -- No features of chronic active colitis identified. -- No dysplasia identified. 2. Colon, right, biopsies: -- Large intestinal mucosa with mild architectural disorder. -- No features of chronic active colitis identified. -- No dysplasia identified. 3. Colon, transverse, biopsy: -- Large intestinal mucosa with mild to moderate architectural disorder. -- No features of chronic active colitis identified. -- No dysplasia identified. 4. Colon, descending, biopsy: -- Large intestinal mucosa with mild to moderate architectural disorder. -- No features of chronic active colitis identified. -- No dysplasia identified. 5. Colon, sigmoid, biopsies: -- Large intestinal mucosa with mild to moderate architectural disorder and scattered lamina propria muciphages. -- No features of chronic active colitis identified. -- No dysplasia identified. 6. Colon, rectum, biopsies: -- Large intestinal mucosa with mild to moderate architectural disorder and scattered lamina propria muciphages. -- No features of chronic active colitis identified. -- No dysplasia identified. CONTINUED ON NEXT PAGE * ML=Testing performed at Main Lab DEPARTMENT OF PATHOLOGY, [address] [place] [address] Micky Woo M.D. Director [facility] # [id number] RUN DATE: 08/07/16 [facility] LAB LIVE PAGE 2 Patient: UZMA SORENSEN [id number] (Continued) FINAL DIAGNOSIS (Continued) CLINICAL HISTORY Crohn's disease POST-OPERATIVE DIAGNOSIS Colonoscopy into terminal ileum ,prep good - scattered pseudopolyps, surveillance biopsies obtained. Conclusions/Plan: Inactive Crohn's colitis GROSS DESCRIPTION 1. The specimen is received in formalin labeled, Cecal Biopsies and consists of a 0.6 x 0.6 by up to 0.2 cm aggregate of almodovar-pink irregular to polypoid soft tissue fragments which is entirely submitted in one cassette. 2. The specimen is received in formalin labeled, Right Colon Biopsies, and consists of a 0.6 x 0.6 x 0.1 cm aggregate of almodovar-pink irregular to polypoid soft tissue fragments which is entirely submitted in one cassette. 3. The specimen is received in formalin labeled, Transverse Biopsies, and consists of two almodovar-white irregular to polypoid soft tissue fragments measuring 0.3 x 0.3 x 0.2 cm and 0.8 x 0.2 x 0.1 cm which are entirely submitted in one cassette. 4. The specimen is received in formalin labeled, Descending Biopsies, and consists of two almodovar-white irregular to polypoid soft tissue fragments measuring 0.2 x 0.2 x 0.1 cm and 0.8 by up to 0.3 x 0.1 cm which are entirely submitted in one cassette. 5. The specimen is received in formalin labeled, Sigmoid Biopsies, and consists of four almodovar-pink irregular to polypoid soft tissue fragments aggregating 0.7 x 0.5 x 0.2 cm which are entirely submitted in one cassette. 6. The specimen is received in formalin labeled, Rectal Biopsies, and consists of two almodovar-pink irregular to polypoid soft tissue fragments measuring 0.7 x 0.4 by up to 0.2 cm and 0.8 x 0.3 x 0.2 cm which are entirely submitted in one cassette. Signed (signature on file) Micky Woo MD [id number] END OF REPORT * ML=Testing performed at Main Lab DEPARTMENT OF PATHOLOGY, [address] [place] [address] Micky Woo M.D. Director [facility] # [id number] SEE RESULT BELOW Name: UZMA SORENSEN : [address]: Tyree Pascual MD Acct: [id number] Unit: [id number] AGE: 50 Location: [facility] Re08/06/16 SEX: F Status: DEP REF SPEC: [id number] MAE: 08/06/16-[address] [facility] [address]: Tyree Pascual MD REQ: [id number] RECD: 08/06/16-2697 STATUS: ZITA SIMON DR: Rachel Bradley SIGNAL INSPECTOR _ ORDERED: LEVEL 4/6 COMMENTS: [id number] FINAL DIAGNOSIS 1. Colon, cecum, biopsy: -- Large intestinal mucosa with mild architectural disorder. -- No features of chronic active colitis identified. -- No dysplasia identified. 2. Colon, right, biopsies: -- Large intestinal mucosa with mild architectural disorder. -- No features of chronic active colitis identified. -- No dysplasia identified. 3. Colon, transverse, biopsy: -- Large intestinal mucosa with mild to moderate architectural disorder. -- No features of chronic active colitis identified. -- No dysplasia identified. 4. Colon, descending, biopsy: -- Large intestinal mucosa with mild to moderate architectural disorder. -- No features of chronic active colitis identified. -- No dysplasia identified. 5. Colon, sigmoid, biopsies: -- Large intestinal mucosa with mild to moderate architectural disorder and scattered lamina propria muciphages. -- No features of chronic active colitis identified. -- No dysplasia identified. 6. Colon, rectum, biopsies: -- Large intestinal mucosa with mild to moderate architectural disorder and scattered lamina propria muciphages. -- No features of chronic active colitis identified. -- No dysplasia identified. CONTINUED ON NEXT PAGE * ML=Testing performed at Main Lab DEPARTMENT OF PATHOLOGY, [address] [place] [address] Micky Woo M.D. Director [facility] # [id number] RUN DATE: 08/07/16 [facility] LAB LIVE PAGE 2 Patient: UZMA SORENSEN [id number] (Continued) FINAL DIAGNOSIS (Continued) CLINICAL HISTORY Crohn's disease POST-OPERATIVE DIAGNOSIS Colonoscopy into terminal ileum ,prep good - scattered pseudopolyps, surveillance biopsies obtained. Conclusions/Plan: Inactive Crohn's colitis GROSS DESCRIPTION 1. The specimen is received in formalin labeled, Cecal Biopsies and consists of a 0.6 x 0.6 by up to 0.2 cm aggregate of almodovar-pink irregular to polypoid soft tissue fragments which is entirely submitted in one cassette. 2. The specimen is received in formalin labeled, Right Colon Biopsies, and consists of a 0.6 x 0.6 x 0.1 cm aggregate of almodovar-pink irregular to polypoid soft tissue fragments which is entirely submitted in one cassette. 3. The specimen is received in formalin labeled, Transverse Biopsies, and consists of two almodovar-white irregular to polypoid soft tissue fragments measuring 0.3 x 0.3 x 0.2 cm and 0.8 x 0.2 x 0.1 cm which are entirely submitted in one cassette. 4. The specimen is received in formalin labeled, Descending Biopsies, and consists of two almodovar-white irregular to polypoid soft tissue fragments measuring 0.2 x 0.2 x 0.1 cm and 0.8 by up to 0.3 x 0.1 cm which are entirely submitted in one cassette. 5. The specimen is received in formalin labeled, Sigmoid Biopsies, and consists of four almodovar-pink irregular to polypoid soft tissue fragments aggregating 0.7 x 0.5 x 0.2 cm which are entirely submitted in one cassette. 6. The specimen is received in formalin labeled, Rectal Biopsies, and consists of two almodovar-pink irregular to polypoid soft tissue fragments measuring 0.7 x 0.4 by up to 0.2 cm and 0.8 x 0.3 x 0.2 cm which are entirely submitted in one cassette. Signed (signature on file) Micky Woo MD [id number] END OF REPORT * ML=Testing performed at Main Lab DEPARTMENT OF PATHOLOGY, [address] [place] [address] Micky Woo M.D. Director [facility] # [id number] Consistent with previous results on 07/29/15. 8 Test Result Flag Unit RefValue Infliximab QN with Reflex to Ab, S Infliximab, S 5.7 mcg/mL REFERENCE VALUE Limit of Quantitation=1.0 mcg/mL Interpretation See Comment For clinical assessment of response to therapy, infliximab should be measured at trough. When infliximab trough concentrations are greater than 5.0 mcg/mL, clinically relevant [id number] are unlikely and reflex testing will not be performed. Test Performed by: [facility] [address] [address] Variety Saw Operator: Ramone Hernandez II, M.D., Ph.D. 9 SEE RESULT BELOW Name: UZMA SORENSEN : [address]: Tyree Becerra MD Acct: [id number] Unit: [id number] AGE: 49 Location: ED Re06/04/15 SEX: F Status: DEP ER SPEC: [id number] MAE: 06/04/[address]: Jhonny MURRIETA REQ: [id number] RECD: 06/04/15 STATUS: MICHAEL BOOKER DR: Renetta Becerra MD _ SOURCE: EMILY CANDELARIA [facility]: ORDERED: MRSA/SA SSTI, Culture Stain Procedure Result Reported Site MRSA/S. aureus SSTI PCR Final 06/05/15- 0007 ML Organism 1 MRSA NEGATIVE Organism 2 S.AUREUS NEGATIVE Wound/Misc Gram Stain Final 06/05/15- 0748 ML 4+ Neutrophils 3+ Nucleated Cells 3+ Gram Negative Coccobacilli Wound/Misc Culture Final 06/06/15- 0951 ML Organism 1 PASTEURELLA MULTOCIDA Quantity 3+ 1. PASTEURELLA MULTOCIDA M.I.C. RX --------- ------ Ampicillin <=2 S Cefazolin <=4 S Ceftriaxone <=1 S Ciprofloxacin <=0.25 S Gentamicin 4 S Levofloxacin <=0.12 S Meropenem <=0.25 S Nitrofurantoin <=16 S Tetracycline <=1 S Trimethoprim/Sulfamethoxazole <=20 S Amoxicillin/Clavulanic Acid <=2 S CONTINUED ON NEXT PAGE * ML=Testing performed at Main Lab DEPARTMENT OF PATHOLOGY, [address] [place] [address] Micky Woo M.D. Director [facility] # [id number] Patient: UZMA SORENSEN [id number] (Continued) Specimen: [id number] Collected: 06/04/15 Received: 06/04/15 (Continued) Procedure Result Reported Site Wound/Misc Culture Final (continued) 06/06/15950 1. PASTEURELLA MULTOCIDA (continued) M.I.C. RX --------- ------ Aztreonam <=1 S Contact the Microbiology Department for any additional antibiotic reporting. * ML - MAIN LAB ([facility]) . END OF REPORT * ML=Testing performed at Main Lab DEPARTMENT OF PATHOLOGY, [address] [place] [address] Micky Woo M.D. Director [facility] # [id number] SEE RESULT BELOW Name: UZMA SORENSEN : [address]: Tyree Becerra MD Acct: [id number] Unit: [id number] AGE: 49 Location: ED Re06/04/15 SEX: F Status: REG ER SPEC: [id number] MAE: 06/04/[address]: Jhonny MURRIETA REQ: [id number] RECD: 06/04/15 STATUS: RES AURORA DR: Renetta Becerra MD _ SOURCE: EMILY CANDELARIA [facility]: ORDERED: Culture Stain Procedure Result Reported Site Wound/Misc Gram Stain Preliminary 06/04/15- 2257 ML 4+ Neutrophils 3+ Nucleated Cells 3+ Gram Negative Bacilli Wound/Misc Culture PENDING * ML - [facility] LAB ([facility]) . END OF REPORT * ML=Testing performed at Main Lab DEPARTMENT OF PATHOLOGY, [address] [place] [address] Micky Woo M.D. Director [facility] # [id number] 11 Acute inflammation: >10.00 12 [facility] Severe Sepsis and Septic Shock Management Bundle Measure requires all lactic acids initially measuring >2.0 mmol/L be repeated. 13 Because ethnic data is not always readily available, this report includes an eGFR for both -Americans and non- Americans. The National Kidney Disease Education Program (NKDEP) does not endorse the use of the MDRD equation for patients that are not between the ages of 18 and 70, are , have extremes of body size, muscle mass, or nutritional status, or are non- or non-. According to the National Kidney Foundation, irrespective of diagnosis, the stage of the disease is based on the level of kidney function: Stage Description GFR(mL/min/1.73 m(2)) 1 Kidney damage with normal or decreased GFR 90 2 Kidney damage with mild decrease in GFR 60-89 3 Moderate decrease in GFR 30-59 4 Severe decrease in GFR 15-29 5 Kidney failure <15 (or dialysis) 14 Reference Range and Interpretation: TnI (ng/mL) Interpretation Less Than 0.03 ng/mL Not supportive of diagnosis of MT 0.03 - 0.50 ng/mL Indeterminate: suggest serial studies if clinically indicated. Greater than 0.5 ng/mL Consistent with diagnosis of MT 15 Because ethnic data is not always readily available, this report includes an eGFR for both -Americans and non- Americans. The National Kidney Disease Education Program (NKDEP) does not endorse the use of the MDRD equation for patients that are not between the ages of 18 and 70, are , have extremes of body size, muscle mass, or nutritional status, or are non- or non-. According to the National Kidney Foundation, irrespective of diagnosis, the stage of the disease is based on the level of kidney function: Stage Description GFR(mL/min/1.73 m(2)) 1 Kidney damage with normal or decreased GFR 90 2 Kidney damage with mild decrease in GFR 60-89 3 Moderate decrease in GFR 30-59 4 Severe decrease in GFR 15-29 5 Kidney failure <15 (or dialysis) 16 Normal Range 180 to 914 Indeterminate Range 145 to 180 Deficient Range <145 17 Because ethnic data is not always readily available, this report includes an eGFR for both -Americans and non- Americans. The National Kidney Disease Education Program (NKDEP) does not endorse the use of the MDRD equation for patients that are not between the ages of 18 and 70, are , have extremes of body size, muscle mass, or nutritional status, or are non- or non-. According to the National Kidney Foundation, irrespective of diagnosis, the stage of the disease is based on the level of kidney function: Stage Description GFR(mL/min/1.73 m(2)) 1 Kidney damage with normal or decreased GFR 90 2 Kidney damage with mild decrease in GFR 60-89 3 Moderate decrease in GFR 30-59 4 Severe decrease in GFR 15-29 5 Kidney failure <15 (or dialysis) Procedures Date Code Description Status 08/06/2016 72249 Moderate Sedation Services; Same Phys Each Additional 15 Completed Mins 08/06/2016 45147 Colonscopy+Biopsy Completed 08/02/2015 34751 Colonoscopy Completed 06/09/2013 49613 Colonscopy+Biopsy Completed 04/02/2012 29613 Colonscopy+Biopsy Completed 03/30/2012 53536 EGD+Biopsy Single Or Multiple Completed 10/13/2002 56857 Colonoscopy Completed Encounters Type Date Location Provider Dx Diagnosis Office Visit 01/12/2018 [facility] Suraj Lamb K50.80 Crohn's disease of 4:00p [place] both small and lg int w/o complications Office Visit 10/25/2017 [facility] Malgorzata Erickson K50.80 Crohn's disease of 9:30a [place] both small and lg PA-C int w/o complications D50.9 Iron deficiency anemia, unspecified Z79.899 Other chcf (current) drug therapy Office Visit 07/07/2016 [facility]enter[facility] Tyree Garcia K50.10 Crohn's disease of 3:00p Erin calvillo [place] Ankur FOX large intestine without complications Office Visit 11/18/2015 [facility] Mercedes Z91.138 Patient's unintent 2:30p [facility], undrdose of meds INSTALLATION ENGINEER-C regimen for oth reason Z12.11 Encounter for screening for malignant neoplasm of colon Office 06/12/2015 Gastroenterlucie Chouah K50.90 Crohn's disease, Visit 3:00p [facility], unspecified, INSTALLATION ENGINEER-C without complications Office 05/14/2015 Gastroenterology Redd Plummer, K50.018 Crohn's disease Visit 12:45p [facility] of small intestine with other complication Office 04/09/2015 [facility]enterology Redd Plummer, K50.012 Crohn's disease Visit 3:15p [facility].Adon[facility] of small intestine w intestinal obstruction Office 02/25/2015 Gastroenterlucie Plummer K50.012 Crohn's disease Visit 2:00p [facility] of small intestine w intestinal obstruction Office 11/26/2014 [facility]enter[facility] Redd Plummer, K50.911 Crohn's disease, Visit 9:30a [facility] unspecified, with rectal bleeding K50.90 Crohn's disease, unspecified, without complications Office Visit 11/13/2013 3:00p Gastroenter[facility]ie Collins.[facility] Richard Plummer M.D. Disease Office Visit 07/10/2013 11:15a [facility]astroenter[facility]ie Gonzales [facility] Richard Plummer M.D. Disease Office Visit 03/06/2013 3:15p [facility]astroenter[facility] Gonzales [facility] Richard Plummer M.D. Disease Office Visit 11/14/2012 3:45p Denilson Gonzales [address] [facility] Richard Plummer M.D. Disease Office Visit 09/14/2012 3:00p Denilson Collins.[facility] Richard Plummer M.D. Disease Office Visit 06/28/2012 3:30p [facility] Richard Plummer M.D. Disease Office Visit 06/06/2012 1:00p [facility]astroenter[facility] Collins.[facility] Richard Plummer M.D. Disease Office Visit 04/15/2012 2:30p [facility] Redd Gonzales 555.[facility] Charlotte Plummer Disease Plan of Treatment Future Appointment(s):02/15/2019 3:30 pm - Suraj Hood MD at [facility]08/17/2018 - Suraj Hood MDK50.80 Crohn's disease of both small and large intestine without complicationsComments: Pleasant 52-year-old female with a long history of Crohn's disease she is doing very well at this point on both azathioprine and Remicade. We will continue with both. She did have labs last week thatwere unremarkable. I will obtain more labs in 4 months from now. She is due for colonoscopy in thesummer of next year
[2018-08-19 19:53] LABS: ABS Eosinophils 0.1 10^3/ul (0-0.6); ABS Lymphocytes 0.9 10^3/ul (1.0-4.8); ABS Monocytes 0.4 10^3/ul (0-0.8); Eosinophil % 1.4 %; Hematocrit 36 % (35-47); Hemoglobin 11.8 g/dL (12.0-16.0); Lymphocyte % 21.2 %; Mean Corpuscular HGB Conc 33 g/dL (31-36); Mean Corpuscular Hemoglobin 29 pg (27-31); Mean Corpuscular Volume 89 fL (80-97); Mean Platelet Volume 8.2 fL (7.4-10.4); Platelet Count 285 10^3/uL (150-450); Red Blood Count 4.08 10^6 /uL (3.70-4.87); Red Cell Distribution Width 18 % (10-15); White Blood Count 4.5 10^3/uL (3.5-10.8)
[2018-08-19 20:05] LABS: Albumin 4.2 g/dL (3.2-5.2); Albumin/Globulin Ratio 1.3 (1-3); BUN/Creatinine Ratio 19.1 (8-20); C Reactive Protein 9.32 mg/L (<8.01); Calcium 9.3 mg/dL (8.6-10.3); EGFR African American 109.9 (>60); EGFR Non-African American 90.9 (>60); Globulin 3.2 g/dL (2-4); Magnesium 2.2 mg/dL (1.9-2.7); Potassium 4.3 mmol/L (3.5-5.0); Total Bilirubin 0.2 mg/dL (0.2-1.0); Total Protein 7.4 g/dL (6.4-8.9)
--- NOTE | 2018-08-19 20:08 | ED ---
HPI Chest Pain - HPI Summary HPI Summary: This pt is a 52 y/o female, with hx of fibromyalgia,presenting to [facility] c/o bilateral breast pain since late last year, recently with intense pain last night on left breast. Pt reports she had a mammogram done at the beginning of the year, either February or March 2018, and notes it was normal. Patient states she has pain to bilateral breasts but sometimes not at the same time and it is mostly pain to her right breast. She also describes her pain sometimes radiates up to her neck, left shoulder, and left arm. Her pain is not everyday, she states "probably once a month." Pt notes last night for the most part she had pain to her left breast that began around 21:00-22:00 08/18/18 and lasted the whole night until 06:00 this morning. Last night pt rated her pain 10/10 in severity and describes her pain as constant burning and sometimes sharp, but states "it varies." Pt reports she took 2 pills of aspirin with relief this morning. Denies nipple discharge, dimpling of the skin, redness around her breasts. Currently she notes her breasts are still sensitive, mainly the nipples , and rates her pain 2 or 3 out of 10 in severity. Denies any trauma to her breasts. Pt reports she has began to experience migraine headache and nausea from the pain. Pt notes her breast pain is different from her normal fibromyalgia pain. Denies SOB, dizziness, fever, cough, vomiting, urinary symptoms, pelvic pain, calf pain. FHx of maternal grandmother who from breast CA. Patient had breast implants done by Dr. Freedman in [place] in 2016. She has breastfed once, her son who is now 34 y/o. Her PCP is Dr. Madison and has an upcoming appointment with her next month to talk about her breast pain. Patient has seen Rachel Bradley NP, about 3 months ago and she is aware of patient's bilateral breast pain. PMHx includes fibromyalgia, Crohn's disease, anemia, migraines (had them from [id number] and began to have them again last year). Pt is on fentanyl patch 100 mcg for fibromyalgia, aspirin PRN, Dicyclomine and Azathioprine for Crohns, Remicade, Lamotrigine for epilepsy (last time she had a seizure was last year), iron. Her neurologist is Dr. Tenorio. Pt does not follow up at the pain clinic. Allergic to nortriptyline. Home Medications Medication Instructions Recorded Confirmed Type fentaNYL PATCHs 100 MCG/HR* 100 mcg TOPICAL Q48HR 08/18/12 08/19/18 History [Duragesic 100 Mcg/Hr Patch*] azaTHIOprine TAB(*) [Imuran TAB(*)] 50 mg PO DAILY 12/13/14 08/19/18 History Aspirin TAB* [Aspirin 325 MG TAB*] 650 mg PO Q6H PRN 07/31/15 08/19/18 History inFLIXimab* [Remicade*] 400 mg IV SEE INSTRUCTIONS 07/31/15 08/19/18 History lamoTRIgine TAB(*) [LaMICtal 100 mg PO SEE INSTRUCTIONS 07/31/15 08/19/18 History TAB(*)] Dicyclomine CAP* [Bentyl CAP*] 10 mg PO ACHS PRN 04/27/16 08/19/18 History diPHENhydraMINE PO* [Benadryl PO 25 mg PO TID PRN 08/04/16 08/19/18 History 25 MG TAB*] Ferrous Sulfate [Iron High-Potency] 325 mg PO EVERY OTHER DAY 01/20/18 08/19/18 History - History of Current Complaint Chief Complaint: EDChestWallPain Time Seen by Provider: 08/19/18 19:13 Hx Obtained From: Patient Hx Last Menstrual Period: now Onset/Duration: Started Weeks Ago, Still Present Timing: Intermittent, Lasting Weeks Initial Severity: Severe - 10/10 last night Current Severity: Mild Pain Intensity: 3 Pain Scale Used: 0-10 Numeric Chest Pain Location: Discrete at: - bilateral breasts Chest Pain Radiates: Yes Chest Pain Radiates To:: Shoulder - left, Arm - left, Neck Character: Burning, Sharp/Stabbing - sometimes sharp Aggravating Factor(s): Nothing Alleviating Factor(s): Nothing Associated Signs and Symptoms: Positive: Chest Pain, Headaches, Nausea. Negative: Dizziness, Shortness of Breath, Fever, Chills, Cough, Calf Pain/ Swelling, Vomiting - Allergy/Home Medications Allergies/Adverse Reactions: Allergies Allergy/AdvReac Type Severity Reaction Status Date / Time nortriptyline AdvReac Dizziness Verified 08/19/18 15:39 PMH/Surg Hx/FS Hx/Imm Hx Endocrine/Hematology History: Reports: Hx Anemia Denies: Hx Diabetes Cardiovascular History: Denies: Hx Congestive Heart Failure, Hx Hypertension, Hx Pacemaker/ICD Respiratory History: Reports: Other Respiratory Problems/Disorders GI History: Reports: Hx Crohn's Disease Denies: Other GI Disorders History: Denies: Hx Dialysis, Hx Renal Disease Musculoskeletal History: Reports: Hx Arthritis, Hx Back Problems, Hx Fibromyalgia Sensory History: Denies: Hx Hearing Aid Neurological History: Reports: Hx Migraine, Hx Seizures - Epilepsy, Other Neuro Impairments/Disorders - being seen for "shakes" the pt has, Fibromyalgia Psychiatric History: Denies: Hx Panic Disorder - Cancer History Hx Chemotherapy: Yes - Imuran Hx Radiation Therapy: No - Surgical History Surgical History: Yes Surgery Procedure, Year, and Place: tubal ligation. inguinal hernia repair on the right. BREAST IMPLANTS in 2016 Hx Anesthesia Reactions: No Infectious Disease History: No Infectious Disease History: Denies: Traveled Outside the [place] in Last 30 Days - Family History Family History: FHx of maternal grandmother who from breast CA - Social History Alcohol Use: None Substance Use Type: Reports: None Smoking Status (MU): Former Smoker Review of Systems Negative: Fever Positive: Chest Pain - bilateral breast pain Negative: Shortness Of Breath, Cough Positive: Nausea - from the pain. Negative: Vomiting Positive: no symptoms reported Negative: Other - NEGATIVE: calf pain Negative: Other - NEGATIVE: nipple discharge or bleeding, redness around breasts Neurological: Other - NEGATIVE: dizziness Positive: Headache All Other Systems Reviewed And Are Negative: Yes Physical Exam - Summary Physical Exam Summary: Appearance: Ill-appearing, moderate pain distress, well-nourished Skin: Warm, color reflects adequate perfusion, dry. Scar 7 cm above her umbilicus and it goes all the way down to her pubic bone. Patient is wearing a fentanyl patch 100 mcg in her RLQ that was placed yesterday 08/18/18. Head: Normal Head/Face inspection, atraumatic Eyes: Conjunctiva clear ENT: Normal inspection Neck: Supple, no nodes, no JVD Chest: Breasts with no palpable masses, no nipple discharge, not warm or red to touch, obvious implants in place. Respiratory: Lungs clear, normal breath sounds, no respiratory distress Cardio: RRR, No murmur, pulses normal, brisk capillary refill Abdomen: Soft, nontender Bowel sounds: Present Musculoskeletal: Strength Intact/ROM intact, no calf tenderness, no edema. Psychological: Normal Neuro: Alert, muscle tone normal, no focal deficit Triage Information Reviewed: Yes Vital Signs On Initial Exam: Initial Vitals Temp Pulse Resp BP Pulse Ox 98.8 F 86 16 138/85 99 08/19/18 15:35 08/19/18 15:35 08/19/18 15:35 08/19/18 15:35 08/19/18 15:35 Vital Signs Reviewed: Yes Diagnostics - Vital Signs Vital Signs Temp Pulse Resp BP Pulse Ox 08/19/18 17:18 98.7 F 72 16 115/72 99 08/19/18 15:35 98.8 F 86 16 138/85 99 - Laboratory Lab Results: Lab Results 08/19/18 Range/Units 19:41 WBC 4.5 (3.5-10.8) 10^3/uL RBC 4.08 (3.70-4.87) 10^6 /uL Hgb 11.8 L (12.0-16.0) g/dL Hct 36 (35-47) % MCV 89 (80-97) fL MCH 29 (27-31) pg MCHC 33 (31-36) g/dL RDW 18 H (10-15) % Plt Count 285 (150-450) 10^3/uL MPV 8.2 (7.4-10.4) fL Neut % (Auto) 67.3 % Lymph % (Auto) 21.2 % [place] % (Auto) 9.3 % Eos % (Auto) 1.4 % Baso % (Auto) 0.8 % Absolute Neuts (auto) 3.0 (1.5-7.7) 10^3/ul Absolute Lymphs (auto) 0.9 L (1.0-4.8) 10^3/ul Absolute Monos (auto) 0.4 (0-0.8) 10^3/ul Absolute Eos (auto) 0.1 (0-0.6) 10^3/ul Absolute Basos (auto) 0.0 (0-0.2) 10^3/ul Absolute Nucleated RBC 0.0 10^3/ul Nucleated RBC % 0.0 Result Diagrams: 08/19/18 19:41 08/19/18 19:41 Lab Statement: Any lab studies that have been ordered have been reviewed, and results considered in the medical decision making process. - Radiology Chest XR Radiology Interpretation Completed By: ED Physician Summary of Radiographic Findings: No acute disease. - Ultrasound No standard instances Ultrasound Interpretation Completed By: Radiologist Summary of Ultrasound Findings: Left Breast Ultrasound IMPRESSION: 1. Left breast implant. 2. Small cyst at 2:00 measuring 2 x 5 x 6 mm. 3. Small solid nodule at 4:00 measuring 3 x 8 x 8 mm and is nonspecific. Dr. Martinez has reviewed this report. Chest Pain Course/Dx - Course Assessment/Plan: Pt is a 52 y/o female, with hx of fibromyalgia, presenting to [facility] c/o bilateral breast pain since late last year, recently with intense pain last night on left breast that lasted all night from 21:00-22:00 on to 06:00 today 08/19/18. Patient states she has pain to bilateral breasts but sometimes not at the same time and it is mostly pain to her right breast. She also describes her pain sometimes radiates up to her neck, left shoulder, and left arm. Her pain is not everyday, she states "probably once a month.". Pts medications reviewed this visit. Nurses notes reviewed. Allergies noted. Blood work was obtained. Pt reports she had a mammogram done at the beginning of the year, either February or March 2018, and notes it was normal. Chest XR shows no acute disease as read by ED physician. Left breast US reveals 1. Left breast implant. 2. Small cyst at 2:00 measuring 2 x 5 x 6 mm. 3. Small solid nodule at 4:00 measuring 3 x 8 x 8 mm and is nonspecific. Discharge - Sign-Out/Discharge Documenting (check all that apply): Patient Departure - Discharge home Patient Received Moderate/Deep Sedation with Procedure: No - Discharge Plan Condition: Stable Disposition: HOME Patient Education Materials: Breast Mass (ED) Referrals: Renetta Madison MD [Primary Care Provider] - Additional Instructions: We have given you a copy of your left breast ultrasound. You will want to contact Dr. Madison on 08/22/18 for further evaluation in the next few days. You were given ketorolac (Toradol) 15mg injectable, with no significant relief. We did a cardiac workup also to make sure that the discomfort was not related to your heart. This was negative. You had a chest xray that is preliminary, but Dr. Martinez did not see any abnormalities. We will contact you if there is any change in treatment needed based on the official reading. Return to the ER if you have any new or worsening symptoms. - Attestation Statements Document Initiated by Scribe: Yes Documenting Scribe: Hilary Stallworth Provider For Whom Scribe is Documenting (Include Credential): Melia Martinez MD Scribe Attestation: Hilary Fernandez, scribed for Melia Martinez MD on 08/22/18 at 1057.
[2018-08-19 20:10] LABS: CKMB ng/mL 1.6 ng/mL (0.6-6.3)
[2018-08-19 20:11] LABS: Activated Partial Thrombo Time 34.5 seconds (26.0-38.0); INR 0.84 (0.82-1.09)
[2018-08-19] MEDS ORDERED: Ketorolac INJ* 30 MG/ML 1 ML VIAL IM ONE (22:45)
[2018-08-19 22:54] VITALS: BP 120/74
== END 2018-08-19 23:32 | disposition home or self-care (01) ==
LOC: ED 15:28
DX: N64.4 Mastodynia (principal); N63.23 Unspecified lump in the left breast, lower outer quadrant; N60.02 Solitary cyst of left breast; R51 Headache; R11.10 Vomiting, unspecified; K50.90 Crohn's disease, unspecified, without complications; M79.7 Fibromyalgia; Z80.3 Family history of malignant neoplasm of breast; Z88.8 Allergy status to other drugs, medicaments and biological substances; Z87.891 Personal history of nicotine dependence
CPT/HCPCS: 36415; 71045; 80053; 82550; 82553; 83605; 83735; 84484; 85025; 85379; 85610; 85730; 86140; 93005; 96372; 99282; J1885